=== PATIENT | female | born 1940 | race Caucasian/White ===

== ENCOUNTER 2019-09-25 11:00 | Emergency (ER) | payer MEDICARE, OTHER, SELFPAY ==
[2019-09-25] VITALS (25 sets, daily range): BP systolic 148–174; BP diastolic 59–98; PULSE 51–118; RESP 10–24; TEMP 36.8; O2SAT 94–98
--- NOTE | 2019-09-25 11:21 | ED.GENADUL_ITS ---
Discharge Plan Disposition Patient Disposition: [facility] Condition: Stable Discharge Details Chief Complaint: GenMedical Clinical Impression: Thought disorder, Acute cerebrovascular accident Primary Care Provider: Cristel,Local ED Provider: Dinora Alvarado Home Meds and New Rx's Prescriptions: No Action levothyroxine 137 mcg Tablet 137 mcg PO DAILY RF: 0 diltiazem HCl 360 mg Capsule,Extended Release 24 Hr 360 mg PO DAILY RF: 0 hydrochlorothiazide 25 mg Tablet 25 mg PO DAILY RF: 0 potassium chloride 20 mEq Tablet Extended Release 20 meq PO DAILY RF: 0 Trulicity 1.5 mg/0.5 mL Pen Injector See Rx Instructions .ROUTE .COMPLEX RF: 0 prednisolone acetate 1 % Drops,Suspension RF: 0 glipizide 2.5 mg Tablet Extended Release 24hr 2.5 mg PO BID RF: 0 Flovent HFA 220 mcg/actuation Hfa Aerosol Inhaler INHALATION RF: 0 budesonide 3 mg Capsule,Delayed,Extend.Release 3 mg PO DAILY RF: 0 Medical Decision Making 1110 -- 78-year-old female with a history of diabetes presents with complaint of not thinking right and concern for low potassium due to her chronic diarrhea. EKG notes a rate of 107, sinus, PVCs but no acute ST ischemic changes. Patient appears anxious. Heart rate 110s which she states is her baseline. She has no focal deficits. Lungs clear. Abdomen soft nontender. Patient describes that she has been having odd thoughts, picturing herself doing something that has not yet happened or seeing things happening . She denies any auditory or visual hallucinations. She denies any alcohol or drug use. Differential diagnosis includes electrolyte abnormality, dehydration, UTI, CVA, arrhythmia. Will check screening labs, urine, stat CT head and give fluids and reassess. 1245 --labs and imaging reviewed. White blood cell count 11. Potassium 3.4. Glucose 282 with normal bicarb. Anion gap 12.5. Troponin negative. Urinalysis notes 5-10 WBCs, few epis with few bacteria. CT head notes findings concerning for acute infarct right medial temporal lobe. Recommend MRI for further evaluation. Patient was informed of findings. She again states that she has been having thoughts that she has been seeing things occur here in the ED which she knows have not happened. 1415 --MRI brain confirms acute infarct right medial temporal lobe. Will discuss with [facility] neurology. Patient informed of results. Results discussed with over the phone. 1450 --discussed with [facility] neurology -stated that presentation could certainly be acute infarct but this presentation can also be seen in seizures and imaging findings could be due to seizure edema. It was initially discussed about obtaining an MRA brain but with further discussion with seizure specialist, advise transfer for further work-up as this could be status epilepticus in the temporal lobe. Recommended a full dose aspirin. Plan discussed with patient and over the phone and patient is agreeable with transfer. Patient has been hemodynamically stable and no focal deficits. She understands plan. 1700 -- Bed now available. Pt to go to [facility] now. She remains hemodynamically stable and in no acute distress. No acute focal deficits. Medical Records Medical records reviewed: Yes I reviewed the patient's medical records. Imaging Data Radiologic Study: Radiologist's impression: CT HEAD WO CLINICAL HISTORY: confusion, r/o acute cva. TECHNIQUE: Imaging Protocol: Axial computed tomography images with coronal and sagittal reformatted images were created and reviewed COMPARISON: No exams were available for comparison FINDINGS: Ventricles and Extra axial spaces: Normal in size and morphology for the patient's age. Hemorrhage: None. Cerebral parenchyma: There is an area of decreased attenuation in the region of the right hippocampal head and para hippocampal gyrus. This may represent an acute infarct. Midline shift: None. Brainstem/Cerebellum: Normal. Calvarium: Normal. Visualized Paranasal sinuses/Mastoids: Mucous retention cysts or polyps are seen in the left maxillary sinus. There is mucosal thickening in the sphenoid sinuses. Soft Tissues: Unremarkable. IMPRESSION: Area of decreased attenuation the region of the right hippocampal head and para hippocampal gyrus suspicious for an acute infarct. A non-contrast MRI examination should be considered for further evaluation. MR BRAIN WO CLINICAL HISTORY: STRANGE THOUGHTS, R TEMPORAL LOBE INFARCT, R/O CVA TECHNIQUE: Multiplanar multisequence MRI of the brain was performed. COMPARISON: CT HEAD WO from 09/25/2019 FINDINGS: VENTRICLES AND EXTRA AXIAL SPACES: There is cerebral atrophy consistent with the patient's age. MIDLINE SHIFT: None. CEREBRAL PARENCHYMA: There is a focus of restricted diffusion in the medial right temporal lobe corresponding to the finding seen on the CT scan from the same day. Finding is consistent with an acute infarct. No space-occupying lesion identified. There are multiple areas of hyperintense signal seen on the FLAIR and T2 weighted images in the white matter most consistent with small vessel ischemic disease. HEMORRHAGE: None. BRAINSTEM/CEREBELLUM: Normal. CALVARIUM: Normal. VISUALIZED PARANASAL SINUSES/MASTOIDS:Mucous retention cysts or polyps are seen in the left maxillary sinus. There is mild mucosal thickening in the right sphenoid sinus. [place]: Normal flow void. PITUITARY [place]AND: Unremarkable. OTHER FINDINGS: None. IMPRESSION: Findings consistent with an acute infarct in the medial right temporal lobe. Lab Data Lab results reviewed: Yes I reviewed the patient's lab results. Labs: 09/25/19 12:40 Urine - Reflex from Ua Urine Culture - Pending Laboratory Tests Range/Units 09/25/19 09/25/19 09/25/19 11:20 11:20 11:20 WBC (4.4-10.8) k/cumm 11.42 H RBC (4.00-5.20) m/cumm 4.42 Hgb (12.0-15.5) g/dL 11.9 L Hct (36.0-46.0) % 36.3 MCV (80-95) fL 82.1 MCH (27.0-33.0) pg 26.9 L MCHC (32.0-36.0) g/dL 32.8 RDW (11.7-14.6) % 13.7 Plt Count (130-400) x1000/uL 507 H MPV (8.0-11.0) fL 10.9 Immature Gran % % 0.4 Neutrophils % 72.7 Lymphocytes % 19.3 Monocytes % 5.3 Eosinophils % 1.7 Basophils % 0.6 Absolute Neutrophils (1.2-6.7) k/cumm 8.30 H Absolute Lymphocytes (1.2-3.4) k/cumm 2.20 Absolute Monocytes (0.11-0.7) k/cumm 0.61 Absolute Eosinophils (0.0-0.7) k/cumm 0.19 Absolute Basophils (0.0-0.2) k/cumm 0.07 PT (9.3-11.0) sec 10.1 INR (0.9-1.1) 1.0 APTT (21.0-31.4) sec 24.9 Sodium (136-145) mmol/L 137 Potassium (3.5-5.1) mmol/L 3.4 L Chloride (98-107) mmol/L 98 Carbon Dioxide (21.0-32.0) mmol/L 26.5 Anion Gap (3-11) mmol/L 12.5 H BUN (7-18) mg/dL 24 H Creatinine (0.55-1.02) mg/dL 1.37 H Estimated GFR/1.73 m2 (mL/min/1.73m2) 37.19 Glucose (74-106) mg/dL 282 H Calcium (8.5-10.1) mg/dL 10.1 Magnesium (1.8-2.4) mg/dL 1.8 Total Bilirubin (0.2-1.0) mg/dL 0.4 AST (15-37) U/L 18 ALT (14-59) U/L 20 Alkaline Phosphatase (46-116) U/L 124 H Troponin I (<0.06) ng/Ml < 0.05 Total Protein (6.4-8.2) g/dL 8.8 H Albumin (3.4-5.0) g/dL 3.9 Urine Color (Yellow) Urine Clarity (Clear) Urine pH (5-8) Ur Specific [place] (1.005-1.025) Urine Protein (Negative) mg/dL Urine Ketones (Negative) mg/dL Urine Blood (Negative) Urine Nitrite (Negative) Urine Bilirubin (Negative) Urine Urobilinogen (Up TO 0.2) EU/dL Ur Leukocyte Esterase (Negative) Urine RBC (0-2) HPF Urine WBC (0-5) HPF Ur Epithelial Cells (Negative) HPF Urine Crystals (Negative) HPF Urine Bacteria (Negative) HPF Urine Casts (Negative) LPF Urine Mucus (Negative) Urine Other (Negative) Ur Culture Indicated? Urine Glucose (Negative) mg/dL Range/Units 09/25/19 12:40 WBC (4.4-10.8) k/cumm RBC (4.00-5.20) m/cumm Hgb (12.0-15.5) g/dL Hct (36.0-46.0) % MCV (80-95) fL MCH (27.0-33.0) pg MCHC (32.0-36.0) g/dL RDW (11.7-14.6) % Plt Count (130-400) x1000/uL MPV (8.0-11.0) fL Immature Gran % % Neutrophils % Lymphocytes % Monocytes % Eosinophils % Basophils % Absolute Neutrophils (1.2-6.7) k/cumm Absolute Lymphocytes (1.2-3.4) k/cumm Absolute Monocytes (0.11-0.7) k/cumm Absolute Eosinophils (0.0-0.7) k/cumm Absolute Basophils (0.0-0.2) k/cumm PT (9.3-11.0) sec INR (0.9-1.1) APTT (21.0-31.4) sec Sodium (136-145) mmol/L Potassium (3.5-5.1) mmol/L Chloride (98-107) mmol/L Carbon Dioxide (21.0-32.0) mmol/L Anion Gap (3-11) mmol/L BUN (7-18) mg/dL Creatinine (0.55-1.02) mg/dL Estimated GFR/1.73 m2 (mL/min/1.73m2) Glucose (74-106) mg/dL Calcium (8.5-10.1) mg/dL Magnesium (1.8-2.4) mg/dL Total Bilirubin (0.2-1.0) mg/dL AST (15-37) U/L ALT (14-59) U/L Alkaline Phosphatase (46-116) U/L Troponin I (<0.06) ng/Ml Total Protein (6.4-8.2) g/dL Albumin (3.4-5.0) g/dL Urine Color (Yellow) Yellow Urine Clarity (Clear) Clear Urine pH (5-8) 6.5 Ur Specific [place] (1.005-1.025) 1.015 Urine Protein (Negative) mg/dL 30 H Urine Ketones (Negative) mg/dL Negative Urine Blood (Negative) Negative Urine Nitrite (Negative) Negative Urine Bilirubin (Negative) Negative Urine Urobilinogen (Up TO 0.2) EU/dL 0.2 Ur Leukocyte Esterase (Negative) Trace H Urine RBC (0-2) HPF Negative Urine WBC (0-5) HPF 5-10 Ur Epithelial Cells (Negative) HPF Few Urine Crystals (Negative) HPF Other Urine Bacteria (Negative) HPF Few Urine Casts (Negative) LPF 5-10 hyaline Urine Mucus (Negative) Trace Urine Other (Negative) Rare renal Ur Culture Indicated? Yes Urine Glucose (Negative) mg/dL Negative ECG Data Attestation: I personally reviewed and interpreted this ECG (s) as follows: Interpretation: Rate of 107, sinus, PVCs. No acute ST elevation or depression. CT 134. QTc 470. QRS 95. HPI General Mode of arrival: ambulatory . Date/Time Provider Initiated Documentation: 09/25/19 11:05 . Limitations to Documentation: no limitations . Information obtained by: patient . HPI Narrative: Patient is a 78-year-old female with a history of diabetes who presents for uncontrollable strange thoughts for the past 2 weeks. Patient states she has been having thoughts that she has picturing herself doing something that has not yet happened or seeing images of things in her head. She denies alcohol or drug use, suicidal or homicidal ideation. She states she has been sleeping and eating well but suspect she has not drinking enough water. She denies any visual changes, headache, dizziness, chest pain, shortness of breath, fever, cough, abdominal pain or vomiting. She states she has a history of chronic diarrhea for several years for which she takes Imodium daily. She states she is also concerned that her potassium may be low as she has had a few bouts of diarrhea recently and has missed some doses of her Imodium. She denies any rectal bleeding. She states she traveled here from [place] 1 month ago with plans to travel on a cruise but has been stuck here due to the quarantine. She states she does not have a doctor here. She was able to later states that she was treated for UTI over 2 months ago. She states she was having urinary frequency at this time which is now resolved. Related Data Home Medications Medication Instructions Recorded Confirmed budesonide 3 mg PO DAILY 09/25/19 09/25/19 diltiazem HCl 360 mg PO DAILY 09/25/19 09/25/19 dulaglutide [Trulicity] See Rx Instructions .ROUTE .COMPLEX 09/25/19 09/25/19 fluticasone propionate [Flovent INHALATION 09/25/19 HFA] glipizide 2.5 mg PO BID 09/25/19 09/25/19 hydrochlorothiazide 25 mg PO DAILY 09/25/19 09/25/19 levothyroxine 137 mcg PO DAILY 09/25/19 09/25/19 potassium chloride 20 meq PO DAILY 09/25/19 09/25/19 prednisolone acetate 09/25/19 Allergies Allergy/AdvReac Type Severity Reaction Status Date / Time Sulfa (Sulfonamide Allergy Unverified 09/25/19 11:21 Antibiotics) General Stated Complaint: GenMedical RANDALL: 3 Review of Systems All systems reviewed & are unremarkable except as noted in HPI and below Constitutional Constitutional: Reports as per HPI, Denies chills and Denies fever(s) Eyes Eyes: Denies blurry vision ENT Ears, Nose, Mouth, and Throat: Denies dizziness, Denies sore throat and Denies throat swelling Cardiovascular Cardiovascular: Denies chest pain and Denies dyspnea Respiratory Respiratory: Denies cough and Denies dyspnea Gastrointestinal Gastrointestinal: Denies abdominal pain, Denies diarrhea and Denies vomiting Genitourinary Genitourinary: Denies hematuria and Denies dysuria Musculoskeletal Musculoskeletal: Denies back pain and Denies numbness Integumentary/Breasts Skin/Breast: Denies lesions and Denies rash Neurologic Neurologic: Denies dizziness, Denies localized weakness and Denies numbness Allergic/Immunologic Allergic/Immunologic: Denies throat swelling [facility] Medical History (Updated 09/25/19 @ 15:25 by Dinora Alvarado DO) Diabetes (Chronic) HTN (hypertension) (Chronic) Surgical History (Updated 09/25/19 @ 12:05 by Dinora Alvarado DO) History of appendectomy (Chronic) History of hysterectomy (Chronic) Social History Smoking/Tobacco Use Status: Never Alcohol Intake: never Drug use: Never Substance use type: does not use Exam Const General: cooperative, healthy appearing and no acute distress [facility] Head: normal to inspection Face and sinus: normal facial exam Eyes General: appearance normal, both eyes and all related structures Pupils: PERRL EOM: EOM intact bilaterally Neck Neck: normal visual inspection and No submandibular swelling Lymphatic: no lymphadenopathy noted Chest Chest: normal inspection of the chest and no tenderness Resp Effort & Inspection: normal respiratory effort and able to speak in complete sentences Auscultation: clear to auscultation bilaterally Cardio Rate: regular rate Rhythm: regular rhythm GI Inspection: normal to inspection Palpation: soft, not firm, not rigid and nontender Auscultation: normal bowel sounds Skin General skin exam: no rashes or lesions noted Neuro General: patient alert, patient awake and patient oriented x3 Cranial Nerves: CN's II-XI intact bilaterally Cognition: normal cognition Speech: speech normal Motor: muscle tone normal throughout and strength 5/5 throughout Sensory Exam: no sensory deficits noted Extrem General: normal to inspection, full ROM, capillary refill normal, no calf tenderness bilaterally and no edema Psych Appearance: grossly normal Mental Status: mental status grossly normal Speech and Movement: speech and movement normal Affect: normal affect Course Vital Signs Vital signs: Vital Signs Temperature 98.2 F 09/25/19 11:12 Pulse 118 H 09/25/19 11:12 Respiratory Rate 20 09/25/19 11:12 Blood Pressure 169/98 H 09/25/19 11:12 Pulse Oximetry 98 09/25/19 11:12 Temperature 98.2 F 09/25/19 11:12 Temperature Source Skin 09/25/19 11:12 Pulse 118 H 09/25/19 11:12 Respiratory Rate 20 09/25/19 11:12 Respiratory Effort 09/25/19 11:18 Blood Pressure 169/98 H 09/25/19 11:12 Blood Pressure Position Supine 09/25/19 11:12 Pulse Oximetry 98 09/25/19 11:12 Oxygen Delivery Method Room Air 09/25/19 11:12 Oxygen Flow Rate 0 09/25/19 11:12 Pain Level 0 09/25/19 11:12
--- NOTE | 2019-09-25 11:30 | DI.CT_ITS ---
EXAM: CT HEAD WO CLINICAL HISTORY: confusion, r/o acute cva. TECHNIQUE: Imaging Protocol: Axial computed tomography images with coronal and sagittal reformatted images were created and reviewed COMPARISON: No exams were available for comparison FINDINGS: Ventricles and Extra axial spaces: Normal in size and morphology for the patient's age. Hemorrhage: None. Cerebral parenchyma: There is an area of decreased attenuation in the region of the right hippocampal head and para hippocampal gyrus. This may represent an acute infarct. Midline shift: None. Brainstem/Cerebellum: Normal. Calvarium: Normal. Visualized Paranasal sinuses/Mastoids: Mucous retention cysts or polyps are seen in the left maxillar y sinus. There is mucosal thickening in the sphenoid sinuses. Soft Tissues: Unremarkable. IMPRESSION: Area of decreased attenuation the region of the right hippocampal head and para hippocampal gyrus hilario picious for an acute infarct. A non-contrast MRI examination should be considered for further evalua tion. RADIATION DOSE DELIVERED: DATA REPOSITORY: All CT scans at this facility are submitted to the National Radiology Data Registry (NRDR) Dose Index Registry (DIR) with the [employer] (A[employer]). RADIATION OPTIMIZATION: All CT scans at this facility use at least one of these dose optimization te chniques: automated exposure control; mA and/or kV adjustment per patient size (includes targeted exa ms where dose is matched to clinical indication); or iterative reconstruction.
[2019-09-25] MEDS: Normal Saline Flush 10 ML SYR IVP (11:50)
[2019-09-25] MEDS: Normal Saline 1,000 ML 1000 ML IV (11:51)
[2019-09-25 12:02] LABS: Abs Immature Grans 0.04 k/cumm (0.0-0.09); Absolute Basophil Count 0.07 k/cumm (0.0-0.2); Absolute Eosinophil Count 0.19 k/cumm (0.0-0.7); Basophils % 0.6; Eosinophils % 1.7; HCT 36.3 % (36.0-46.0); HGB 11.9 g/dL (12.0-15.5); Immature Grans % 0.4 %; Lymphocytes % 19.3; Mean Corp. HGB Concentration 32.8 g/dL (32.0-36.0); Mean Corpuscular Hemoglobin 26.9 pg (27.0-33.0); Mean Corpuscular Volume 82.1 fL (80-95); Mean Platelet Volume 10.9 fL (8.0-11.0); Monocytes % 5.3; Neutrophils % 72.7; Platelet Count 507 x1000/uL (130-400); RBC 4.42 m/cumm (4.00-5.20); RBC Distribution Width 13.7 % (11.7-14.6); White Blood Cell Count 11.42 k/cumm (4.4-10.8)
[2019-09-25 12:03] LABS: Absolute Monocyte Count 0.61 k/cumm (0.11-0.7)
[2019-09-25 12:18] LABS: PTT Activated 24.9 sec (21.0-31.4); Prothrombin Time 10.1 sec (9.3-11.0)
[2019-09-25 12:21] LABS: ALT 20 U/L (14-59); AST 18 U/L (15-37); Albumin 3.9 g/dL (3.4-5.0); Alkaline Phosphatase 124 U/L (46-116); Anion Gap 12.5 mmol/L (3-11); BUN 24 mg/dL (7-18); Bilirubin, Total 0.4 mg/dL (0.2-1.0); CO2 26.5 mmol/L (21.0-32.0); CREATININE 1.37 mg/dL (0.55-1.02); Calcium 10.1 mg/dL (8.5-10.1); Chloride 98 mmol/L (98-107); Estimated GFR 37.19 (mL/min/1.73m2); Glucose 282 mg/dL (74-106); Magnesium 1.8 mg/dL (1.8-2.4); Potassium 3.4 mmol/L (3.5-5.1); Sodium 137 mmol/L (136-145); Total Protein 8.8 g/dL (6.4-8.2)
[2019-09-25 12:28] LABS: Troponin I < 0.05 ng/Ml (<0.06)
[2019-09-25 12:52] LABS: Bilirubin Negative (Negative); Blood Negative (Negative); Clarity Clear (Clear); Glucose Negative (Negative); Ketones Negative (Negative); Leukocyte Esterase Trace (Negative); Nitrite Negative (Negative); Specific Gravity 1.015 (1.005-1.025); Urobilinogen 0.2 EU/dL (Up TO 0.2); pH 6.5 (5-8)
--- NOTE | 2019-09-25 13:00 | DI.MRI_ITS ---
EXAM: MR BRAIN WO CLINICAL HISTORY: STRANGE THOUGHTS, R TEMPORAL LOBE INFARCT, R/O CVA TECHNIQUE: Multiplanar multisequence MRI of the brain was performed. COMPARISON: CT HEAD WO from 09/25/2019 FINDINGS: VENTRICLES AND EXTRA AXIAL SPACES: There is cerebral atrophy consistent with the patient's age. MIDLINE SHIFT: None. CEREBRAL PARENCHYMA: There is a focus of restricted diffusion in the medial right temporal lobe corre sponding to the finding seen on the CT scan from the same day. Finding is consistent with an acute i nfarct. No space-occupying lesion identified. There are multiple areas of hyperintense signal seen o n the FLAIR and T2 weighted images in the white matter most consistent with small vessel ischemic dis ease. HEMORRHAGE: None. BRAINSTEM/CEREBELLUM: Normal. CALVARIUM: Normal. VISUALIZED PARANASAL SINUSES/MASTOIDS:Mucous retention cysts or polyps are seen in the left maxillary sinus. There is mild mucosal thickening in the right sphenoid sinus. [place]: Normal flow void. [place]: Unremarkable. OTHER FINDINGS: None. IMPRESSION: Findings consistent with an acute infarct in the medial right temporal lobe. The findings were discussed with the Emergency Department on the date of the examination. DATA REPOSITORY:
[2019-09-25 13:03] LABS: Bacteria Few HPF (Negative); Casts 5-10 Hyaline LPF (Negative); Epithelial Cells Few HPF (Negative); Mucus Trace (Negative); Other Cells Rare Renal (Negative)
[2019-09-25 13:11] LABS: C & S Indicated? Yes; Crystals Other HPF (Negative)
[2019-09-25 13:12] LABS: RBC Negative HPF (0-2)
--- NOTE | 2019-09-25 14:15 | DI.RAD_ITS ---
EXAM: XR PORTABLE CHEST AP CLINICAL HISTORY: acute cva on imaging, r/o acute disease TECHNIQUE: 2D digital imaging was performed. COMPARISON: No exams were available for comparison FINDINGS: MEDIASTINUM: Normal. HEART: Normal. PULMONARY VASCULATURE: Normal. LUNGS: Clear. PLEURAL SPACE: No pleural effusion or pneumothorax. BONE:Normal. OTHER FINDINGS:Normal. IMPRESSION: No acute pulmonary findings. DATA REPOSITORY: RADIATION DOSE DELIVERED:
[2019-09-25] MEDS: Aspirin 325 MG TAB PO (15:05)
[2019-09-25 15:57] LABS: Anion Gap 13.2 mmol/L (3-11); BUN 20 mg/dL (7-18); CO2 24.8 mmol/L (21.0-32.0); CREATININE 1.05 mg/dL (0.55-1.02); Calcium 9.5 mg/dL (8.5-10.1); Chloride 104 mmol/L (98-107); Estimated GFR 50.56 (mL/min/1.73m2); Potassium 3.1 mmol/L (3.5-5.1); Sodium 142 mmol/L (136-145)
[2019-09-25 16:03] LABS: Glucose 87 mg/dL (74-106)
[2019-09-25] MEDS: DEXTROSE 5%-0.45% SALINE 1,000 ML 75 ML IV (16:40)
== END 2019-09-25 17:35 | disposition short-term general hospital (02) ==
PROVIDERS: Emergency Provider Physician Assistant
DX: R44.2 Other hallucinations (principal); I63.9 Cerebral infarction, unspecified; I10 Essential (primary) hypertension; E11.9 Type 2 diabetes mellitus without complications; Z79.84 Long term (current) use of oral hypoglycemic drugs
CPT/HCPCS: 36415; 36416; 80048; 80053; 82962; 93005; 96360; 96361; 99285; 70450; 70551; 71045; 81003; 81015; 83735; 84484; 85025; 85610; 85730; 87086; 93010